=== PATIENT | female | born 1965 | race Caucasian/White ===

== ENCOUNTER 2023-03-30 22:54 | Emergency (ER) | payer OTHER ==
[~2023-03-30] VITALS: Ht 162.6 cm; Wt 68.0 kg
[2023-03-30 22:56] VITALS: O2SAT 100
[2023-03-30 23:16] VITALS: TEMP 98.4
[2023-03-30 23:27] LABS: BASOPHILS % 0.4 % (0.0-2.0); HEMATOCRIT. 43.3 % (36.0-48.0); HEMOGLOBIN. 14.4 g/dL (12.0-16.0); LYMPHOCYTES % 42.6 % (20.0-50.0); MEAN CORPUSCULAR HEMOGLOBIN 29.1 pg (28.0-32.0); MEAN CORPUSCULAR HGB CONC 33.2 g/dL (31.0-37.0); MEAN CORPUSCULAR VOLUME 87.5 fL (81.0-99.0); MONOCYTES % 6.5 % (2.0-8.0); NEUTROPHILS % 49.5 % (40.0-76.0); PLATELET 284 x1000/uL (130-400); RED BLOOD CELL COUNT 4.95 mill/uL (4.2-5.4); RED CELL DISTRIBUTION WIDTH 13.6 % (11.6-14.6); WHITE BLOOD COUNT 9.8 x1000/uL (4.5-11.0)
[2023-03-30 23:28] LABS: CHLORIDE 107 mEq/L (98-107); INDEX HEMOLYSI 1 (1-3); INDEX ICTERIC 1 (1-4); INDEX LIPEMIC 1 (1-3); POTASSIUM 3.1 mEq/L (3.5-5.1); SODIUM 141 mEq/L (136-145)
[2023-03-30 23:34] LABS: ALANINE AMINOTRANSFERASE 24 IU/L (13-61); ALBUMIN 4.5 g/dL (3.4-5.0); ASPARTATE AMINOTRANSFERASE 18 IU/L (15-37); BILIRUBIN TOTAL 0.4 mg/dL (0.1-1.0); CALCIUM 9.9 mg/dL (8.5-10.1); CARBON DIOXIDE 26 mEq/L (21-32); CREATININE 0.5 mg/dL (0.6-1.3); ETHANOL BLOOD < 10 mg/dL (-10); GLUCOSE 128 mg/dL (70-105); PROTEIN TOTAL 8.8 g/dL (6.0-8.3); UREA NITROGEN BLOOD 10 mg/dL (7-21)
[2023-03-31] MEDS ORDERED: POTASSIUM CHLORIDE 20MEQ/PACKET PO NR
[2023-03-31 01:39] VITALS: BP 126/56; PULSE 77; RESP 12
[2023-03-31] MEDS ORDERED: KEPP500 MT (01:53)
[2023-03-31] MEDS ORDERED: POTA-204 MT (01:53)
== END 2023-03-31 02:02 | disposition home or self-care (01) ==
LOC: ER 22:54
DX: R56.9 Unspecified convulsions (principal); E87.6 Hypokalemia
CPT/HCPCS: 80053; 80320; 85025; 36415; 99284; 70450; Z7610; G0480